=== PATIENT | male | born 1955 | race Caucasian/White ===

== ENCOUNTER 2017-03-28 11:05 | Emergency (ER) | payer MEDICARE ==
[~2017-03-28] VITALS: Ht 175.3 cm; Wt 60.0 kg
[2017-03-28] MEDS ORDERED: SODIUM CHLORIDE 0.9% 1,000 ML IV ONE (11:29)
[2017-03-28] MEDS ORDERED: LORazepam 2 MG/ML, 1ML IVPush ONE (11:30)
[2017-03-28] MEDS ORDERED: SODIUM CHLORIDE 0.9% 1,000ML IVBOLUS ONE (11:30)
[2017-03-28] MEDS ORDERED: LORazepam 2 MG/ML, 1ML ONE (11:31)
[2017-03-28 11:49] LABS: HEMATOCRIT 37.6 % (39.2-51.8); HEMOGLOBIN 12.2 g/dL (13.7-18.0); WHITE BLOOD COUNT 8.8 x10^3/uL (3.4-10)
[2017-03-28 12:04] LABS: BLOOD UREA NITROGEN 11 mg/dL (7-18)
[2017-03-28 12:06] LABS: ASPARTATE AMINO TRANSFERASE 42 U/L (15-37)
[2017-03-28 12:17] LABS: ACETAMINOPHEN < 2 mcg/mL (10-30)
[2017-03-28 16:03] LABS: DAU SCREEN DISCLAIMER
[2017-03-28 23:31] VITALS: BP 130/74
== END 2017-03-28 23:34 | disposition home or self-care (01) ==
LOC: ED 17:13
DX: R41.82 Altered mental status, unspecified (principal); I10 Essential (primary) hypertension; G92 Toxic encephalopathy; F15.10 Other stimulant abuse, uncomplicated; F12.10 Cannabis abuse, uncomplicated; H10.402 Unspecified chronic conjunctivitis, left eye
CPT/HCPCS: 36415; 71010; 80053; 80307; 80329; 81003; 82140; 85025; 93005; 96361; 96374; 99285; J2060; J7030; G0479; G0480

== ENCOUNTER 2017-04-06 23:37 | Emergency (ER) | payer MEDICARE ==
[~2017-04-06] VITALS: Ht 175.3 cm; Wt 56.6 kg
[2017-04-06 23:48] VITALS: BP 145/86
[2017-04-07] MEDS ORDERED: FLUORESCEIN OPHTHALMIC 1 MG STRIP ONE
[2017-04-07] MEDS ORDERED: PROPARACAINE OPHTH 0.5%, 15ML ONE (00:01)
== END 2017-04-07 01:02 | disposition home or self-care (01) ==
LOC: ED 23:59
DX: H10.021 Other mucopurulent conjunctivitis, right eye (principal); H16.141 Punctate keratitis, right eye; I10 Essential (primary) hypertension; Z87.891 Personal history of nicotine dependence
CPT/HCPCS: 99283

== ENCOUNTER 2017-07-22 09:40 | Emergency (ER) | payer MEDICARE ==
[~2017-07-22] VITALS: Ht 172.7 cm; Wt 56.6 kg
[2017-07-22] MEDS ORDERED: KETOROLAC 30 MG/1 ML ONE (10:38)
[2017-07-22] MEDS ORDERED: DIAZEPAM 5 MG TABLET ONE (10:39)
[2017-07-22 10:45] VITALS: BP 115/73
[2017-07-22] MEDS ORDERED: KETOROLAC 30 MG/1 ML IM ONE (11:00)
[2017-07-22] MEDS ORDERED: DIAZEPAM 5 MG TABLET PO ONE (11:00)
== END 2017-07-22 12:05 | disposition home or self-care (01) ==
LOC: ED 11:19
DX: S16.1XXA Strain of muscle, fascia and tendon at neck level, initial encounter (principal); G89.29 Other chronic pain; I10 Essential (primary) hypertension; Z87.891 Personal history of nicotine dependence; X58.XXXA Exposure to other specified factors, initial encounter; Y93.89 Activity, other specified; Y99.8 Other external cause status; Y92.89 Other specified places as the place of occurrence of the external cause
CPT/HCPCS: 72050; 96372; 99284; J1885

== ENCOUNTER 2018-01-23 08:51 | Emergency (ER) | payer MEDICARE ==
[~2018-01-23] VITALS: Ht 175.3 cm; Wt 58.0 kg
[~2018-01-23 08:51] MED LIST: METH500T97 PO
[2018-01-23] MEDS ORDERED: LORazepam 2 MG/ML, 1ML IVPush ONE (09:30)
[2018-01-23] MEDS ORDERED: LORazepam 2 MG/ML, 1ML ONE (09:32)
[2018-01-23] MEDS ORDERED: GABA600T2 PO (09:46)
[2018-01-23 10:34] VITALS: BP 132/82
== END 2018-01-23 10:38 | disposition home or self-care (01) ==
LOC: ED 09:36
DX: F15.20 Other stimulant dependence, uncomplicated (principal); F41.1 Generalized anxiety disorder; I10 Essential (primary) hypertension
CPT/HCPCS: 71045; 96374; 99284; J2060

== ENCOUNTER 2018-04-13 11:24 | Inpatient (IN) | payer MEDICARE ==
[~2018-04-13] VITALS: Ht 172.7 cm; Wt 53.5 kg
[~2018-04-13 11:24] MED LIST changes: +GABA600T2 PO
[2018-04-13 11:56] LABS: MEAN PLATELET VOLUME 8.3 fL (7.4-10.4); PLATELET COUNT 276 x10^3/uL (130-400); RED BLOOD COUNT 5.12 x10^6/uL (4.38-5.82); RED CELL DISTRIBUTION WIDTH 16.5 % (9.4-14.8)
[2018-04-13] MEDS ORDERED: KETOROLAC 30 MG/1 ML IVPush ONE (12:00)
[2018-04-13] MEDS ORDERED: SODIUM CHLORIDE FLUSH 10ML SYR IVF ONE (12:00)
[2018-04-13] MEDS ORDERED: KETOROLAC 30 MG/1 ML ONE (12:01)
[2018-04-13 12:07] LABS: ALANINE AMINOTRANSFERASE 32 U/L (12-78); ALBUMIN 2.2 g/dL (3.4-5.0); ANION GAP 12 mmol/L (5-15); CHLORIDE 90 mmol/L (98-107); CREATININE 0.92 mg/dL (0.7-1.3)
[2018-04-13 12:09] LABS: D-DIMER 0.91 ug/mlFEU (0.00-0.52); INTERNATIONAL NORMALIZED RATIO 1.41 (0.93-1.1); PROTHROMBIN TIME 14.7 Seconds (9.6-11.5)
[2018-04-13 12:11] LABS: ALKALINE PHOSPHATASE 125 U/L (45-117); BILIRUBIN,TOTAL 0.6 mg/dL (0.2-1.0); TOTAL PROTEIN 7.1 g/dL (6.4-8.2); TROPONIN I < 0.015 ng/mL (0.000-0.045)
[2018-04-13 12:27] LABS: MD YES
[2018-04-13] MEDS ORDERED: AZITHROMYCIN 500 MG in SODIUM CHLORIDE 0.9% 250 ML IVPB ONE (12:30)
[2018-04-13] MEDS ORDERED: CEFTRIAXONE 1,000 MG in SODIUM CHLORIDE 0.9% 50 ML IVPB ONE (12:30)
[2018-04-13 12:44] LABS: BAND#(MANUAL) 0.52 x10^3/uL; BANDS%(MANUAL) 2 % (0-7); LYMPH#(MANUAL) 0.52 x10^3/uL (1-3.4); LYMPHS% (MANUAL) 2 % (22-44); MONOS#(MANUAL) 0.52 x10^3/uL (0.3-2.7); MONOS% (MANUAL) 2 % (2-9); SEGS% (MANUAL) 94 % (42-75)
[2018-04-13 12:46] LABS: <PLATELET ESTIMATE> ADEQUATE; <PLT MORPHOLOGY> NORMAL PLT MORPH; <RBC MORPHOLOGY> NORMAL; TOXIC GRAN 1+
[2018-04-13] MEDS ORDERED: CEFTRIAXONE PMX 1GM/50ML 50 ML ONE (12:46)
[2018-04-13] MEDS ORDERED: OMNIPAQUE 350 MG/ML, 100ML BOTTLE ONE (12:54)
[2018-04-13] MEDS: NS + 20MEQ KCL 1,000 ML IV SCH ×2 (14:27→20:08)
[2018-04-13] MEDS ORDERED: morphine SULFATE 10 MG/ML, 1ML IVPush PRN (14:30)
[2018-04-13] MEDS ORDERED: DOCUSATE 100 MG CAPSULE PO PRN (14:30)
[2018-04-13] MEDS ORDERED: ACETAMINOPHEN 325 MG TABLET PO PRN (14:30)
[2018-04-13] MEDS ORDERED: CALCIUM CARBONATE 500 MG TAB.CHEW PO PRN (14:30)
[2018-04-13] MEDS ORDERED: ONDANSETRON 2MG/ML, 2ML IVPush PRN (14:30)
[2018-04-13] MEDS ORDERED: POLYETHYLENE GLYCOL 17 GM PACKET PO PRN (14:30)
[2018-04-13] MEDS ORDERED: SODIUM CHLORIDE FLUSH 10ML SYR IVF PRN (14:30)
[2018-04-13 15:11] VITALS: BP 115/77
[2018-04-13] MEDS: LORazepam 1MG TABLET PO PRN (15:35)
[2018-04-13 18:48] VITALS: BP 98/62
[2018-04-13] MEDS: FAMOTIDINE 20 MG TABLET PO SCH (20:08)
[2018-04-14 01:32] VITALS: BP 99/66
[2018-04-14 05:14] LABS: MEAN CORPUSCULAR HEMOGLOBIN 24.1 pg (27.5-34.5); MEAN CORPUSCULAR HGB CONC 31.9 g/dL (33.2-36.2); MEAN CORPUSCULAR VOLUME 75.6 fL (81-97); MEAN PLATELET VOLUME 8.8 fL (7.4-10.4); PLATELET COUNT 274 x10^3/uL (130-400); RED CELL DISTRIBUTION WIDTH 16.1 % (9.4-14.8)
[2018-04-14 05:21] LABS: CHLORIDE 96 mmol/L (98-107)
[2018-04-14 05:30] LABS: ANION GAP 8 mmol/L (5-15); CALCIUM 8.4 mg/dL (8.5-10.1); CREATININE 0.58 mg/dL (0.7-1.3)
[2018-04-14 05:49] LABS: MD YES
[2018-04-14 05:50] LABS: BAND#(MANUAL) 2.53 x10^3/uL; BANDS%(MANUAL) 12 % (0-7); LYMPH#(MANUAL) 0.42 x10^3/uL (1-3.4); LYMPHS% (MANUAL) 2 % (22-44); MONOS#(MANUAL) 0.42 x10^3/uL (0.3-2.7); MONOS% (MANUAL) 2 % (2-9); SEG#(MANUAL) 17.72 x10^3/uL (1.8-6.8); SEGS% (MANUAL) 84 % (42-75)
[2018-04-14 05:51] LABS: <PLATELET ESTIMATE> ADEQUATE; <PLT MORPHOLOGY> NORMAL PLT MORPH; MICROCYTOSIS 1+; TOXIC GRAN 1+
[2018-04-14 06:58] VITALS: BP 104/66
[2018-04-14] MEDS: FAMOTIDINE 20 MG TABLET PO SCH ×2 (07:55→20:19)
[2018-04-14] MEDS: ENOXAPARIN 40 MG/0.4 ML SQ SCH (07:55)
[2018-04-14] MEDS: SENNA/DOCUSATE TABLET PO SCH (07:56)
[2018-04-14] MEDS: GUAIFENESIN/COD200MG-20MG/10ML LIQUID PO PRN (10:19)
[2018-04-14 12:23] VITALS: BP 113/73
[2018-04-14] MEDS ORDERED: CEFTRIAXONE PMX 1GM/50ML 50 ML IV SCH (13:00)
[2018-04-14] MEDS: PIPERACILLIN/TAZO/PMX 3.375GM 50 ML IV SCH ×2 (13:01→20:19)
[2018-04-14] MEDS: OXYcodone/APAP 5/325MG TABLET PO PRN ×2 (13:02→20:19)
[2018-04-14] MEDS ORDERED: AZITHROMYCIN 500 MG in SODIUM CHLORIDE 0.9% 250 ML IV SCH (13:30)
[2018-04-14 17:56] LABS: MICROSCOPIC INDICATED
[2018-04-14 18:04] LABS: AMPHETAMINE SCREEN, URINE Positive (Negative); BARBITURATE SCREEN, URINE Negative (Negative); BENZODIAZEPINE SCREEN, URINE Negative (Negative); CANNABINOID SCREEN, URINE Positive (Negative); COCAINE SCREEN, URINE Negative (Negative); METHADONE SCREEN, URINE Negative (Negative); OPIATE SCREEN, URINE Positive (Negative)
[2018-04-14 18:45] VITALS: BP 95/61
[2018-04-15 01:13] VITALS: BP 107/67
[2018-04-15] MEDS: OXYcodone/APAP 5/325MG TABLET PO PRN ×4 (01:20→20:46)
[2018-04-15] MEDS: PIPERACILLIN/TAZO/PMX 3.375GM 50 ML IV SCH ×2 (01:24→06:33)
[2018-04-15] MEDS: GUAIFENESIN/COD200MG-20MG/10ML LIQUID PO PRN ×2 (04:01→16:34)
[2018-04-15 08:15] VITALS: BP 103/63
[2018-04-15] MEDS: CEFTRIAXONE PMX 2GM/50ML 50 ML IV SCH (09:29)
[2018-04-15] MEDS: FAMOTIDINE 20 MG TABLET PO SCH ×2 (09:29→20:46)
[2018-04-15] MEDS: SENNA/DOCUSATE TABLET PO SCH (09:29)
[2018-04-15] MEDS: ENOXAPARIN 40 MG/0.4 ML SQ SCH (09:30)
[2018-04-15 13:30] VITALS: BP 103/68
[2018-04-15 19:45] VITALS: BP 101/67
[2018-04-16 01:20] VITALS: BP 103/71
[2018-04-16] MEDS: OXYcodone/APAP 5/325MG TABLET PO PRN ×2 (01:37→06:54)
[2018-04-16] MEDS: GUAIFENESIN/COD200MG-20MG/10ML LIQUID PO PRN ×2 (01:37→09:21)
[2018-04-16 05:30] LABS: MEAN CORPUSCULAR HEMOGLOBIN 23.8 pg (27.5-34.5); MEAN CORPUSCULAR HGB CONC 31.5 g/dL (33.2-36.2); MEAN CORPUSCULAR VOLUME 75.4 fL (81-97); MEAN PLATELET VOLUME 7.9 fL (7.4-10.4); PLATELET COUNT 303 x10^3/uL (130-400); RED BLOOD COUNT 4.76 x10^6/uL (4.38-5.82); RED CELL DISTRIBUTION WIDTH 16.6 % (9.4-14.8)
[2018-04-16 05:39] LABS: ALANINE AMINOTRANSFERASE 37 U/L (12-78); ALBUMIN 1.5 g/dL (3.4-5.0); ANION GAP 7 mmol/L (5-15); CALCIUM 8.1 mg/dL (8.5-10.1); CHLORIDE 103 mmol/L (98-107)
[2018-04-16 05:41] LABS: ALKALINE PHOSPHATASE 166 U/L (45-117); BILIRUBIN,TOTAL 0.8 mg/dL (0.2-1.0); TOTAL PROTEIN 6.2 g/dL (6.4-8.2)
[2018-04-16 06:00] LABS: BASOPHILS % (AUTO) 0 % (0-1); EOSINOPHILS # (AUTO) 0.01 x10^3/uL (0-0.4); EOSINOPHILS % (AUTO) 0 % (1-7); LYMPHOCYTES # (AUTO) 0.78 x10^3/uL (1-3.4); LYMPHOCYTES % (AUTO) 3 % (22-44); MD SCAN; MONOCYTES # (AUTO) 1.17 x10^3/uL (0.2-0.8); MONOCYTES % (AUTO) 5 % (2-9); NEUTROPHILS # (AUTO) 23.12 x10^3/uL (1.8-6.8); NEUTROPHILS % (AUTO) 92 % (42-75)
[2018-04-16 08:08] VITALS: BP 90/54
[2018-04-16] MEDS: ENOXAPARIN 40 MG/0.4 ML SQ SCH (09:00)
[2018-04-16] MEDS: SENNA/DOCUSATE TABLET PO SCH (09:21)
[2018-04-16] MEDS: CEFTRIAXONE PMX 2GM/50ML 50 ML IV SCH (09:21)
[2018-04-16] MEDS: FAMOTIDINE 20 MG TABLET PO SCH (09:21)
[2018-04-16] MEDS: LORazepam 1MG TABLET PO PRN (10:34)
== END 2018-04-16 11:43 | disposition left against medical advice (07) | DRG 871 ==
LOC: ED 12:06 → SUATTDRO 14:16 → EDIP 14:27 → 3NE 14:54
PROVIDERS: ADMIT Family Medicine; ATTEND Internal Medicine
PROC: 0W9B3ZZ Drainage of Left Pleural Cavity, Percutaneous Approach (ICD-10-PCS; principal; 2018-04-13)
DX: A41.9 Sepsis, unspecified organism (principal); J86.9 Pyothorax without fistula; E43 Unspecified severe protein-calorie malnutrition; J15.9 Unspecified bacterial pneumonia; C34.11 Malignant neoplasm of upper lobe, right bronchus or lung; C79.51 Secondary malignant neoplasm of bone; J91.8 Pleural effusion in other conditions classified elsewhere; Z68.1 Body mass index [BMI] 19.9 or less, adult; I10 Essential (primary) hypertension; Z66 Do not resuscitate; B18.2 Chronic viral hepatitis C; K57.90 Diverticulosis of intestine, part unspecified, without perforation or abscess without bleeding; B95.0 Streptococcus, group A, as the cause of diseases classified elsewhere; F12.90 Cannabis use, unspecified, uncomplicated; F15.10 Other stimulant abuse, uncomplicated; I25.10 Atherosclerotic heart disease of native coronary artery without angina pectoris; I25.2 Old myocardial infarction; Z87.891 Personal history of nicotine dependence; Z59.0 Homelessness; Z80.1 Family history of malignant neoplasm of trachea, bronchus and lung; Z87.81 Personal history of (healed) traumatic fracture
CPT/HCPCS: 32555; 36415; 71045; 71046; 71275; 80048; 80053; 80307; 81001; 82150; 82378; 82945; 83605; 83615; 83735; 83880; 83986; 84157; 84484; 85025; 85379; 85610; 85730; 87040; 87070; 87147; 87181; 87205; 88112; 88305; 89051; 93005; 93306; 96374; 96375; 99285; G0378; J0456; J0696; J1650; J1885; J2405; J2543; J3480; Q9967; J7050

== ENCOUNTER 2018-11-12 12:10 | Inpatient (IN) | payer MEDICARE ==
[~2018-11-12] VITALS: Ht 172.7 cm; Wt 50.0 kg
[~2018-11-12 12:10] MED LIST changes: -GABA600T2 PO; +GABA600T7 PO
[2018-11-12] MEDS ORDERED: SODIUM CHLORIDE 0.9% 1,000 ML IV ONE (12:36)
[2018-11-12] MEDS ORDERED: HYDROmorphone 2 MG/ML, 1ML ONE (12:39)
[2018-11-12 12:51] LABS: MEAN CORPUSCULAR HEMOGLOBIN 25.1 pg (27.5-34.5); MEAN CORPUSCULAR HGB CONC 31.5 g/dL (33.2-36.2); MEAN CORPUSCULAR VOLUME 79.7 fL (81-97); MEAN PLATELET VOLUME 7.4 fL (7.4-10.4); PLATELET COUNT 248 x10^3/uL (130-400); RED BLOOD COUNT 4.64 x10^6/uL (4.38-5.82); RED CELL DISTRIBUTION WIDTH 15.4 % (9.4-14.8)
--- NOTE | 2018-11-12 12:58 | NUR ---
MEDS PER ORDERS GIVEN DESAT TO 80% PLACE ON O2 HOLDING 96 TO 98 SAT
[2018-11-12 13:00] LABS: ALANINE AMINOTRANSFERASE 41 U/L (12-78); ALBUMIN 2.4 g/dL (3.4-5.0); ANION GAP 8 mmol/L (5-15); CALCIUM 8.2 mg/dL (8.5-10.1); CHLORIDE 103 mmol/L (98-107); CREATININE 0.63 mg/dL (0.7-1.3)
[2018-11-12] MEDS ORDERED: ONDANSETRON 2MG/ML, 2ML IVPush ONE (13:00)
[2018-11-12] MEDS ORDERED: SODIUM CHLORIDE 0.9%, 500ML IVBOLUS ONE (13:00)
[2018-11-12] MEDS ORDERED: SODIUM CHLORIDE FLUSH 10ML SYR IVF ONE (13:00)
[2018-11-12] MEDS ORDERED: HYDROmorphone 2 MG/ML, 1ML IVPush PRN (13:00)
[2018-11-12 13:02] LABS: ALKALINE PHOSPHATASE 124 U/L (45-117); TOTAL PROTEIN 6.9 g/dL (6.4-8.2)
[2018-11-12 13:21] LABS: MD YES
[2018-11-12 13:25] LABS: BAND#(MANUAL) 1.18 x10^3/uL; BANDS%(MANUAL) 4 % (0-7); LYMPH#(MANUAL) 0.59 x10^3/uL (1-3.4); LYMPHS% (MANUAL) 2 % (22-44); MONOS#(MANUAL) 1.78 x10^3/uL (0.3-2.7); MONOS% (MANUAL) 6 % (2-9); SEG#(MANUAL) 26.05 x10^3/uL (1.8-6.8); SEGS% (MANUAL) 88 % (42-75)
[2018-11-12 13:26] LABS: <PLATELET ESTIMATE> ADEQUATE; <PLT MORPHOLOGY> NORMAL PLT MORPH; ANISOCYTOSIS 1+; PMNS WITH VACUOLES 1+
[2018-11-12] MEDS ORDERED: PIPERACILLIN/TAZO/PMX 3.375GM 50 ML IV ONE (13:30)
[2018-11-12] MEDS ORDERED: PIPERACILLIN/TAZO/PMX 3.375GM 50 ML ONE (13:47)
--- NOTE | 2018-11-12 13:54 | NUR ---
THROUGHPUT RN- CALLED SOFTWARE QA MANAGER AT [facility]. DC IS NEARLY FULL AND IS REFUSING PATIENT AT THIS TIME.
[2018-11-12] MEDS ORDERED: DOXYCYCLINE 100 MG in DEXTROSE 5% 250 ML IV ONE (14:00)
[2018-11-12] MEDS ORDERED: POTASSIUM CHLORIDE 20 MEQ TAB.ER.PRT PO ONE (15:30)
[2018-11-12] MEDS ORDERED: SODIUM CHLORIDE 0.9% 1,000 ML IV SCH (15:30)
[2018-11-12 17:19] VITALS: BP 112/73
[2018-11-12] MEDS ORDERED: LABETALOL 5MG/ML, 20ML IVPush PRN (17:30)
[2018-11-12] MEDS ORDERED: hydrALAzine 20 MG/ML, 1ML IVPush PRN (17:30)
[2018-11-12] MEDS ORDERED: ONDANSETRON 2MG/ML, 2ML IVPush PRN (18:00)
[2018-11-12] MEDS ORDERED: LIDODERM 5% PATCH TD PRN (18:00)
[2018-11-12] MEDS ORDERED: KETOROLAC 30 MG/1 ML IV PRN (18:00)
[2018-11-12] MEDS ORDERED: BACLOFEN 10 MG TABLET PO PRN (18:00)
[2018-11-12] MEDS ORDERED: ACETAMINOPHEN 325 MG TABLET PO PRN (18:00)
[2018-11-12] MEDS: CEFTRIAXONE PMX 1GM/50ML 50 ML IV SCH (18:19)
[2018-11-12 19:32] VITALS: BP 104/65
[2018-11-12] MEDS ORDERED: TRAZODONE 50MG TABLET PO PRN (21:00)
[2018-11-12] MEDS: ENOXAPARIN 40 MG/0.4 ML SQ SCH (21:00)
[2018-11-12] MEDS ORDERED: GABAPENTIN 300 MG CAPSULE PO PRN (21:00)
[2018-11-13 01:57] VITALS: BP 105/67
[2018-11-13] MEDS: DOXYCYCLINE 100 MG in DEXTROSE 5% 250 ML IV SCH ×2 (02:24→14:40)
[2018-11-13 05:28] LABS: ANION GAP 7 mmol/L (5-15); CALCIUM 8.1 mg/dL (8.5-10.1); CHLORIDE 104 mmol/L (98-107); CREATININE 0.48 mg/dL (0.7-1.3)
[2018-11-13 05:38] LABS: MEAN CORPUSCULAR HEMOGLOBIN 26.3 pg (27.5-34.5); MEAN CORPUSCULAR HGB CONC 32.6 g/dL (33.2-36.2); MEAN CORPUSCULAR VOLUME 80.7 fL (81-97); MEAN PLATELET VOLUME 7.9 fL (7.4-10.4); PLATELET COUNT 160 x10^3/uL (130-400); RED BLOOD COUNT 4.23 x10^6/uL (4.38-5.82); RED CELL DISTRIBUTION WIDTH 15.7 % (9.4-14.8)
[2018-11-13 06:10] LABS: BASOPHILS # (AUTO) 0.01 x10^3/uL (0-0.1); BASOPHILS % (AUTO) 0 % (0-1); EOSINOPHILS % (AUTO) 0 % (1-7); LYMPHOCYTES # (AUTO) 0.89 x10^3/uL (1-3.4); LYMPHOCYTES % (AUTO) 5 % (22-44); MD SCAN; MONOCYTES # (AUTO) 0.77 x10^3/uL (0.2-0.8); MONOCYTES % (AUTO) 4 % (2-9); NEUTROPHILS # (AUTO) 17.73 x10^3/uL (1.8-6.8); NEUTROPHILS % (AUTO) 91 % (42-75)
[2018-11-13 06:26] LABS: MICROSCOPIC NOT IND
[2018-11-13 06:28] LABS: CULTURE INDICATED? NO
[2018-11-13 06:42] LABS: AMPHETAMINE SCREEN, URINE Positive (Negative); BARBITURATE SCREEN, URINE Negative (Negative); BENZODIAZEPINE SCREEN, URINE Negative (Negative); CANNABINOID SCREEN, URINE Positive (Negative); COCAINE SCREEN, URINE Negative (Negative); METHADONE SCREEN, URINE Negative (Negative); OPIATE SCREEN, URINE Positive (Negative)
[2018-11-13 06:48] VITALS: BP_SYST 108; BP_SYST 99; BP_DIAS 62; BP_DIAS 71
[2018-11-13] MEDS ORDERED: POTASSIUM CHLORIDE 20 MEQ TAB.ER.PRT PO ONE (11:30)
[2018-11-13 12:29] VITALS: BP 106/69
[2018-11-13] MEDS: SODIUM CHLORIDE 0.9% 1,000 ML IV SCH ×2 (14:38→22:39)
[2018-11-13] MEDS: CEFTRIAXONE PMX 1GM/50ML 50 ML IV SCH (18:28)
[2018-11-13 19:14] VITALS: BP 118/75
[2018-11-13] MEDS: ENOXAPARIN 40 MG/0.4 ML SQ SCH (19:54)
[2018-11-14 01:18] VITALS: BP 123/79
[2018-11-14] MEDS: DOXYCYCLINE 100 MG in DEXTROSE 5% 250 ML IV SCH ×2 (02:29→14:44)
[2018-11-14 06:40] VITALS: BP 123/74
[2018-11-14 13:23] VITALS: BP 135/88
[2018-11-14] MEDS: CEFTRIAXONE PMX 1GM/50ML 50 ML IV SCH (18:32)
[2018-11-14 18:55] VITALS: BP 119/70
[2018-11-14] MEDS: ENOXAPARIN 40 MG/0.4 ML SQ SCH (21:36)
[2018-11-15 01:23] VITALS: BP 147/89
[2018-11-15] MEDS: DOXYCYCLINE 100 MG in DEXTROSE 5% 250 ML IV SCH ×2 (02:19→14:30)
[2018-11-15 05:26] LABS: BASOPHILS # (AUTO) 0.01 x10^3/uL (0-0.1); BASOPHILS % (AUTO) 0 % (0-1); EOSINOPHILS # (AUTO) 0.03 x10^3/uL (0-0.4); EOSINOPHILS % (AUTO) 0 % (1-7); LYMPHOCYTES # (AUTO) 1.04 x10^3/uL (1-3.4); LYMPHOCYTES % (AUTO) 14 % (22-44); MD NO; MEAN CORPUSCULAR HEMOGLOBIN 25.9 pg (27.5-34.5); MEAN CORPUSCULAR HGB CONC 32.1 g/dL (33.2-36.2); MEAN CORPUSCULAR VOLUME 80.6 fL (81-97); MEAN PLATELET VOLUME 7.9 fL (7.4-10.4); MONOCYTES # (AUTO) 0.53 x10^3/uL (0.2-0.8); MONOCYTES % (AUTO) 7 % (2-9); NEUTROPHILS # (AUTO) 6.01 x10^3/uL (1.8-6.8); NEUTROPHILS % (AUTO) 79 % (42-75); PLATELET COUNT 216 x10^3/uL (130-400); RED BLOOD COUNT 4.45 x10^6/uL (4.38-5.82); RED CELL DISTRIBUTION WIDTH 15.3 % (9.4-14.8)
[2018-11-15 05:29] LABS: ANION GAP 7 mmol/L (5-15); CALCIUM 7.8 mg/dL (8.5-10.1); CHLORIDE 109 mmol/L (98-107); CREATININE 0.51 mg/dL (0.7-1.3)
[2018-11-15 07:53] VITALS: BP 101/67
[2018-11-15] MEDS ORDERED: POTASSIUM CHLORIDE 20 MEQ TAB.ER.PRT PO ONE (08:30)
[2018-11-15 14:38] VITALS: BP 129/86
[2018-11-15] MEDS ORDERED: GABA600T7 PO (16:16)
[2018-11-15] MEDS ORDERED: CEFD300C37 PO (16:16)
[2018-11-15] MEDS ORDERED: DOXY100T PO (16:16)
[2018-11-15] MEDS: CEFTRIAXONE PMX 1GM/50ML 50 ML IV SCH (16:49)
== END 2018-11-15 17:10 | disposition home or self-care (01) | DRG 871 ==
LOC: ED 13:56 → EDIP 13:57 → ED 14:36 → 3NE 15:00
PROVIDERS: ADMIT Hospitalist; ATTEND Hospitalist
DX: A41.9 Sepsis, unspecified organism (principal); J96.01 Acute respiratory failure with hypoxia; J18.1 Lobar pneumonia, unspecified organism; E43 Unspecified severe protein-calorie malnutrition; C34.90 Malignant neoplasm of unspecified part of unspecified bronchus or lung; C79.51 Secondary malignant neoplasm of bone; E87.1 Hypo-osmolality and hyponatremia; Z68.1 Body mass index [BMI] 19.9 or less, adult; E87.6 Hypokalemia; F15.10 Other stimulant abuse, uncomplicated; F41.1 Generalized anxiety disorder; G89.3 Neoplasm related pain (acute) (chronic); I10 Essential (primary) hypertension; Z66 Do not resuscitate; B19.20 Unspecified viral hepatitis C without hepatic coma; Z59.0 Homelessness; Z79.899 Other long term (current) drug therapy
CPT/HCPCS: 36415; 71045; 80048; 80053; 80307; 81003; 83605; 84145; 85025; 87040; 93005; G0378; J0696; J1170; J2543; J7060; J7030; J7040

== ENCOUNTER 2020-05-20 14:24 | Emergency (ER) | payer MEDICARE ==
[~2020-05-20] VITALS: Ht 172.7 cm; Wt 59.0 kg
[~2020-05-20 14:24] MED LIST changes: +CEFD300C37 PO; +DOXY100T PO
--- NOTE | 2020-05-20 15:02 | NUR ---
Provider at bedside.
[2020-05-20 15:25] VITALS: BP 126/84
== END 2020-05-20 15:29 | disposition home or self-care (01) ==
LOC: ED 15:20
DX: M79.641 Pain in right hand (principal); G89.29 Other chronic pain; I10 Essential (primary) hypertension; Z85.118 Personal history of other malignant neoplasm of bronchus and lung
CPT/HCPCS: 99282